=== PATIENT | female | born 1980 | race Two or more races ===

== ENCOUNTER 2017-05-24 10:15 | Inpatient (IN) | payer OTHER ==
[2017-05-24 10:48] LABS: BASOPHIL 0.6 % (0-2.0); EOSINOPHIL 0.7 % (0-4.5); MCH 29.3 pg (25.7-33.7); MCHC 32.9 g/dl (32.0-36.0); MEAN CELL VOLUME 89.2 fl (80-96); MEAN PLT VOLUME 9.6 fl (7.5-11.1); NEUTROPHILS 73.2 % (42.8-82.8); PLATELET COUNT 155 K/MM3 (134-434); RDW 13.1 % (11.6-15.6); WHITE BLOOD COUNT 6.9 K/mm3 (4.0-10.0)
[2017-05-24 10:54] VITALS: BMI 30.7
[2017-05-24] MEDS ORDERED: AMPICILLIN - 2 GM in SODIUM CHLORIDE 100 ML IVPB ONE (11:00)
[2017-05-24 11:01] LABS: INR 1.08 (0.82-1.09); PROTHROMBIN TIME (PATIENT) 11.9 SEC (9.98-11.88)
[2017-05-24] MEDS ORDERED: ELECTROLYTE-148 SOLN 1,000 ML IV SCH ×2 (11:15→13:30)
[2017-05-24 11:33] LABS: ALBUMIN 2.5 g/dl (3.4-5.0); ANION GAP 9 (8-16); CALCIUM 8.7 mg/dL (8.5-10.1); CO2 20 mmol/L (21-32); CREATININE 0.6 mg/dL (0.55-1.02); GLUCOSE,RANDOM 78 mg/dL (74-106); SGOT/AST 13 U/L (15-37); SGPT/ALT 15 U/L (12-78)
[2017-05-24 11:35] LABS: ALK PHOS 150 U/L (45-117); BILIRUBIN,TOTAL 0.2 mg/dL (0.2-1.0); TOT PROT 6.3 g/dl (6.4-8.2)
--- NOTE | 2017-05-24 12:03 | HP ---
Past Medical History - Primary Care Physician PCP:: Faustina Lau - Admission Chief Complaint: 36 years( AMA) , 36 weeks by dates, 36,6/7 weeks brought by ambulence. due to bleeding . 9.30 onset of pain, bleeding & leaking fluid since 10.00AM. 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 Weeks Gestation by Dates: 36.0 ...EDC by Dates: 06/21/17 ...EDC by Sono: 06/15/17 (36.6/7 weeks ) Additional OB History: G1 09/19/2000 39 weeks Twins Male & female in [facility]. G2 05/19/2004 39 weeks Twins , Male, female in [facility]. G3 03/26/2009 39 weeks female in [facility] Heme/Onc: Yes: Anemia Infectious Disease: No: AIDS, STD's, Tuberculosis Psych: No: Addictions, Anxiety, Bipolar, Depression - Past Surgical History Past Surgical History: Yes: None Hx Myomectomy: No Hx Transabdominal Cerclage: No - Smoking History Smoking history: Never smoked Have you smoked in the past 12 months: No - Alcohol/Substance Use Hx Alcohol Use: No History of Substance Use: reports: None - Social History History of Recent Travel: No Home Medications - Allergies Allergies/Adverse Reactions: Allergies Allergy/AdvReac Type Severity Reaction Status Date / Time No Known Allergies Allergy Verified 05/24/17 10:34 - Home Medications Home Medications: Ambulatory Orders NK [No Known Home Medication] 07/07/15 Physical Exam - Maternity Vital Signs: Vital Signs Temperature 98.7 F 05/24/17 10:42 Pulse Rate 71 05/24/17 10:42 Respiratory Rate 20 05/24/17 10:42 Blood Pressure 132/73 05/24/17 10:42 O2 Sat by Pulse Oximetry (%) Constitutional: Yes: Well Nourished, No Distress, Calm Eyes: Yes: WNL HENT: Yes: WNL, Normocephalic Neck: Yes: WNL, Trachea Midline Cardiovascular: Yes: WNL, Regular Rate and Rhythm Lungs: Clear to auscultation Breast(s): Yes: Other (not examined) - Abdominal Exam/OB Fundal Height: 36 Number of Fetuses: Single Presentation: Vertex Contractions: Yes Regularity: Regular (2-3 min) Intensity: Mod/Strong Monitor Mode: External Heart Rate (range): 160 Heart Rate Location: [facility] Category: I Decelerations: None - Vaginal Exam/OB Vaginal Bleediing: Yes, Moderate Speculum Exam: Yes Dilatation (cm): FT Effacement (%): unefface Amniotic Membrane Status: Ruptured Nitrazine Test: Positive Amniotic Fluid: Yes: Blood Stained (brown color stained fluid) Presentation: Vertex/Position (exam at 10.15 AM) Station: -4 - Physical Exam Extremities: Yes: WNL. No: Calf Tenderness Edema: LLE: Trace, RLE: Trace Integumentary: Yes: WNL Deep Tendon Reflex Grade: Normal +2 Psychiatric: Yes: WNL, Alert, Oriented - Labs Lab Results: CBC, BMP 05/24/17 10:35 05/24/17 10:35 Laboratory Tests 05/24/17 10:35 PT with INR 11.90 H INR 1.08 PTT (Actin FS) 27.0 Assessment/Plan 36 yrs ( AMA) , 36 weeks by dates & 36.6/7 weeks by sono diagnosed Abruptio placenta . fhr is assuring Plan continuous monitoring sono by the bed side If pt continues to bleed , possible delivery by Primary c/section
[2017-05-24 12:20] LABS: HIV 1 & 2 AB NEGATIVE; HIV 1 AGp24 NEGATIVE
[2017-05-24] MEDS ORDERED: ELECTROLYTE-148 SOLN 500 ML IV ONE (13:19)
[2017-05-24 14:35] LABS: ARTERIAL BLD GAS O2 SATURATION 4.3 % (90-98.9); ARTERIAL BLOOD GAS BASE EXCESS -4.5 meq/l (-2-2); ARTERIAL BLOOD GAS HCO3 24.7 meq/L (22-26); ARTERIAL BLOOD GAS PO2 7.4 mmHg (80-100)
[2017-05-24 14:36] LABS: ARTERIAL BLOOD GAS pH 7.21 (7.35-7.45); LPM/O2% 21%; PT. ON O2? NO; TYPE OF O2 ROOM AIR
[2017-05-24 14:37] LABS: ARTERIAL BLD GAS O2 SATURATION 29.7 % (90-98.9); ARTERIAL BLOOD GAS BASE EXCESS -3.5 meq/l (-2-2); ARTERIAL BLOOD GAS HCO3 23.2 meq/L (22-26); ARTERIAL BLOOD GAS pH 7.28 (7.35-7.45)
[2017-05-24 14:39] LABS: ARTERIAL BLOOD GAS PO2 19.9 mmHg (80-100); LPM/O2% 21%; PT. ON O2? NO; TYPE OF O2 ROOM AIR/CORDBLOODS
[2017-05-24] MEDS ORDERED: CITRIC ACID/SODIUM CITRATE 30 ML UNIT-DOSE CUP PO ONE (14:45)
[2017-05-24] MEDS ORDERED: AMPICILLIN - 1 GM in SODIUM CHLORIDE 100 ML IVPB SCH (15:00)
[2017-05-24] MEDS ORDERED: ONDANSETRON 4 MG/2 ML VIAL IVPUSH PRN (15:25)
--- NOTE | 2017-05-24 16:07 | PN ---
Progress Note (short form) - Note Progress Note: 1.00 PM patient had gush of vaginal bleeding moderate amount brown & red color accompanied by fluid . sonogram was being donee by the bed side , intrauterine blood clots were suspected. Pelvic exam : cx FT/unefface/vx _4 UC q2-3 min strong FHR 150, no decel, cat-1 Selected Entries 05/24/17 05/24/17 11:00 12:00 Temperature 98.5 F Pulse Rate 78 Blood Pressure 110/60 111/54 IMP: 36 weeks iup, Abruptio Placenta Plan Delivery by Primary LFTC?section
--- NOTE | 2017-05-24 16:23 | PN ---
Delivery - Delivery Section: Primary, Low Flap Transverse (36.6/7 weeks iup , abruptio placenta) Type of Anesthesia: Spinal Episiotomy/Laceration: None EBL (cc): 1,200 (han ouut put 100 ml melissa color ) Delivery, Single - Stages of Labor Date 1st Stage Initiatied: 05/24/17 Time 1st Stage Initiated: 09:30 Date of Delivery: 05/24/17 Time of Delivery: 13:34 Time Placenta Delivered: 13:35 (abruption, blood clots in fluid, brown color fluid ) Placenta: Yes: Manual Removal, Uterine Exploration - Condition of Infant Flight Mechanic/Senior Clinical Study Manager Present: Yes Name: Jules Wyman Infant Gender: Male Weight: 6 lb 4 oz Position: Right, OT Total Hours ROM (Hrs/Mins): AFluid blood clots, - 1 Minute Total Score: 9 5 Minutes Total Score: 9 - [place] Feeding Plan Initial Plan: Elected not to breastfeed exclusively throughout hospitalization Remarks - Remarks Remarks: 36 yrs 36 weeks by dates, 36.6/7 weeks by sono bleeding & leaking brown color fluid abruptio placenta suspected Gbs unknown , 2 gm iv Ampiciilin given 1 gm IVAncef prior to incision was given Intraop one unit pack cell transfusion started , 2 nd unit will be given in PACU . Large sinuses & large veins in front of lower segment of uterus , bleeding actively .hemostasis achieved
[2017-05-24] MEDS ORDERED: METHYLERGONOVINE MALEATE 0.2 MG/1 ML AMP IM PRN (16:24)
[2017-05-24] MEDS ORDERED: oxyCODONE HCL 5 MG TABLET PO PRN (16:24)
--- NOTE | 2017-05-24 16:37 | OP ---
Operative Note - Note: Operative Date: 05/24/17 Pre-Operative Diagnosis: 36.6/7 weeks , abruptio placenta Operation: Primary LFTC/Section Findings: 13.34 hr , Baby Boy, 9/9, ROT,Wt 6'4' , Both Tubes & ovaries normal blood clots ,in Amniotic fluid,& brown color fluid large veins in front of lower segment Surgeon: Faustina Lau Front Of House Manager: Antoine Espinal Anesthesiologist/GASTROENTEROLOGY TEACHER: Jose Mc Anesthesia: Spinal Specimens Removed: placenta. cord segment for blood gas. cord blood Estimated Blood Loss (mls): 1,200 Drains, Volume Out (mls): 100 (han melissa color urine ) Blood Volume Replaced (mls): 350 (1 pack cell unit in or & 1 in pacu ) Fluid Volume Replaced (mls): 1,500 (iv ancef prior to incision ) Operative Report Dictated: Yes
[2017-05-24] MEDS: D5W-LR W/ 20 UNITS OXYTOCIN 1,000 ML IV SCH ×2 (17:00→23:57)
[2017-05-24] MEDS: IBUPROFEN 800 MG/8 ML IJ IVPB PRN ×2 (17:45→23:54)
[2017-05-24] MEDS ORDERED: CEFAZOLIN 1 GM/D5W 50 ML IVPB SCH (18:00)
[2017-05-24] MEDS: CEFAZOLIN 1 GM/D5W 50 ML IVPB SCH (20:26)
[2017-05-24 20:51] LABS: BASOPHIL 0.3 % (0-2.0); EOSINOPHIL 0.2 % (0-4.5); MCH 30.4 pg (25.7-33.7); MCHC 34.1 g/dl (32.0-36.0); MEAN CELL VOLUME 89.2 fl (80-96); MEAN PLT VOLUME 9.9 fl (7.5-11.1); NEUTROPHILS 77.7 % (42.8-82.8); PLATELET COUNT 127 K/MM3 (134-434); RDW 13.1 % (11.6-15.6); WHITE BLOOD COUNT 8.5 K/mm3 (4.0-10.0)
[2017-05-25] MEDS ORDERED: DEXTROSE 5%-WATER - 50 ML IVPB ONE ×2 (04:13→11:50)
[2017-05-25] MEDS ORDERED: ceFAZolin SODIUM 1 GM VIAL ONE ×2 (04:13→11:50)
[2017-05-25] MEDS: CEFAZOLIN 1 GM/D5W 50 ML IVPB SCH (04:16)
[2017-05-25] MEDS: CEFAZOLIN 1 GM in DEXTROSE 5%-WATER - 50 ML IVPB SCH ×2 (04:20→11:54)
--- NOTE | 2017-05-25 07:18 | OP ---
DATE OF OPERATION: 05/24/2017 PREOPERATIVE DIAGNOSIS: 36-6/7 weeks gestation. Abruptio placentae. PROCEDURE PERFORMED: Primary xwb-prvy-ejtpqdvahs section. SURGEON: Faustina Lau MD BLUEPRINTING AND PHOTOCOPY SUPERVISOR: CHAZ New ANESTHESIOLOGIST: Jose Mc M.D. ANESTHESIA: Spinal. INDICATIONS: This is a 36-year-old 4, para 3-0-0-5, with a history of 3 normal spontaneous vaginal deliveries and 2 sets of twins. The patient was dominic every 2 minutes. She presented with moderate bleeding and leaking, in Labor and Delivery also. Contractions were every 2 minutes. Abruptio placentae was suspected. heart rate was category 1. Cervix was fingertip, uneffaced and -4 station. Ultrasound was done at bedside which raised suspicion for blood clots in the amniotic fluid. DESCRIPTION OF PROCEDURE: The patient was taken to the operating room table. A Guaman catheter was placed. The abdomen was shaved and draped. She was given spinal anesthesia. She was placed in the supine position. The abdomen was painted and draped in the usual manner. A Pfannenstiel incision was made through the skin and subcutaneous tissue. The anterior rectus sheath was incised transversely. Bleeding points were clamped and cauterized. The rectus muscle was from the rectus sheath. The parietal peritoneum was opened vertically; lower flap by the bladder peritoneum incised transversely. There were large blood vessels covering the lower segment, and the uterine segment was incised transversely. The amniotic fluid was brown in color, blood stained, and large blood clots were coming out. The baby was delivered from ROT position at 0134 hours, baby boy. Apgars were 9 and 9. Cord was clamped and cut. Cord blood was collected. Endbander, Dr. Jules Wyman, was present. The baby's weight was 6 pounds 4 ounces. The placenta was removed completely with the membranes. The uterine cavity was cleaned. The uterine was closed in 2 layers. The 1st layer was a continuous locking with Biosyn 0 suture. The 2nd layer also was continuous Biosyn; vertical mattress sutures were taken. The bladder peritoneum was closed with Biosyn 0 suture. Before closure of the bladder peritoneum closure, hemostatic sutures were required in the left angle of the incision and also wherever there were large blood vessels, more hemostatic sutures were required there. Both tubes and ovaries were normal. Irrigation was done. Sponge, instrument and needle counts were correct. Irrigation was done. Closure of the abdomen was done. The parietal peritoneum was closed with Vicryl 0 suture. The muscles were approximated together with Vicryl 0 interrupted sutures. The anterior rectus sheath was closed with Vicryl 0 continuous sutures. Hemostasis was checked in the subcutaneous tissue. The skin was approximated with adeline. A pressure dressing was given. Blood clots were removed from the vagina. Estimated blood loss was 1200 mL. Her intraoperative urine output was 100 mL. She received 1500 mL of IV fluids. She was given 1 unit of packed cells intraoperatively, and a second unit of packed cells was given in the recovery room. The patient tolerated the procedure well. She was sent to the recovery room in stable condition. She received 1 g of IV Ancef prior to the incision. Malaika [id number]
[2017-05-25 07:57] LABS: BASOPHIL 0.2 % (0-2.0); EOSINOPHIL 0.5 % (0-4.5); MCH 29.6 pg (25.7-33.7); MCHC 33.5 g/dl (32.0-36.0); MEAN CELL VOLUME 88.2 fl (80-96); MEAN PLT VOLUME 9.6 fl (7.5-11.1); NEUTROPHILS 82.7 % (42.8-82.8); PLATELET COUNT 125 K/MM3 (134-434); RDW 13.5 % (11.6-15.6); WHITE BLOOD COUNT 9.8 K/mm3 (4.0-10.0)
--- NOTE | 2017-05-25 08:11 | PN ---
Progress Note (short form) - Note Progress Note: Anesthesia/ Pain Pt seen and examined S:alert and oriented comfortable O: Vital Signs Temperature 99.2 F 05/25/17 06:20 Pulse Rate 68 05/25/17 06:20 Respiratory Rate 18 05/25/17 06:20 Blood Pressure 101/60 05/25/17 06:20 O2 Sat by Pulse Oximetry (%) 99 05/24/17 17:15 CBC, BMP 05/25/17 07:46 05/24/17 10:35 A/P: s/p c section doing well post op continue current care Kermit Aguirre MD
[2017-05-25] MEDS: PRENATAL VITAMINS W/ FOLIC ACID TABLET (FP) PO SCH (09:30)
[2017-05-25] MEDS: IBUPROFEN 800 MG/8 ML IJ IVPB PRN (09:37)
[2017-05-25] MEDS ORDERED: FLU VACC QS2017-18 36MOS UP/PF 60 MCG/0.5 ML SYRINGE IM ONE (14:00)
[2017-05-25] MEDS ORDERED: DIPHTH,PERTUSS(ACELL),TET 0.5 ML DISP.SYRIN IM ONE (14:00)
[2017-05-25] MEDS ORDERED: BISACODYL 10 MG SUPP.RECT RC PRN (16:24)
--- NOTE | 2017-05-25 16:24 | PN ---
Progress Note (short form) - Note Progress Note: pod 1 doing well, no c/o ,no excess vaginal bleeding CBC, BMP 05/25/17 07:46 05/24/17 10:35 Last Vital Signs Temp Pulse Resp BP Pulse Ox 97.9 F 71 20 108/64 99 05/25/17 14:03 05/25/17 14:03 05/25/17 14:03 05/25/17 14:03 05/24/17 17:15 abdomen soft, no distension, no cva incision dry, clean no calf tenderness plan ambulate, advance diet
[2017-05-25] MEDS: IBUPROFEN 600 MG TABLET (FP) PO PRN ×2 (16:48→22:36)
[2017-05-25] MEDS: SIMETHICONE 80 MG TAB.CHEW (FP) PO PRN ×2 (16:48→22:33)
[2017-05-25] MEDS: ACETAMINOPHEN 325 MG TABLET (FP) PO PRN ×2 (16:49→22:37)
[2017-05-25] MEDS: SENNOSIDES/DOCUSATE COMBO (SENNA PLUS) TABLET (UD) PO PRN (22:00)
[2017-05-25] MEDS: FERROUS SO4 325 MG TABLET (FP) PO SCH (22:33)
[2017-05-26] MEDS: FERROUS SO4 325 MG TABLET (FP) PO SCH ×2 (10:00→22:25)
--- NOTE | 2017-05-26 14:02 | PN ---
Post Progress Note Post Day: 2 Type of Delivery: Primary C/S Vital Signs: Vital Signs Temperature 99.0 F 05/26/17 10:00 Pulse Rate 83 05/26/17 10:00 Respiratory Rate 18 05/26/17 10:00 Blood Pressure 110/67 05/26/17 10:00 O2 Sat by Pulse Oximetry (%) 99 05/24/17 17:15 Breast Exam: Yes: Soft Uterus: Yes: Fundus Firm Incision: Yes: Dressing dry and intact Abdomen/GI: Yes: Abdomen soft Lochia: Yes: Rubra Lochia, amount: Small Extremities: Yes: Calves non-tender Perineum: Yes: Intact - Labs Labs: CBC WBC 9.8 K/mm3 (4.0-10.0) 05/25/17 07:46 RBC 3.77 M/mm3 (3.60-5.2) 05/25/17 07:46 Hgb 11.1 GM/dL (10.7-15.3) 05/25/17 07:46 Hct 33.2 % (32.4-45.2) 05/25/17 07:46 MCV 88.2 fl (80-96) 05/25/17 07:46 MCH 29.6 pg (25.7-33.7) 05/25/17 07:46 MCHC 33.5 g/dl (32.0-36.0) 05/25/17 07:46 RDW 13.5 % (11.6-15.6) 05/25/17 07:46 Plt Count 125 K/MM3 (134-434) L 05/25/17 07:46 MPV 9.6 fl (7.5-11.1) 05/25/17 07:46 Neutrophils % 82.7 % (42.8-82.8) 05/25/17 07:46 Lymphocytes % 8.0 % (8-40) D 05/25/17 07:46 Monocytes % 8.6 % (3.8-10.2) 05/25/17 07:46 Eosinophils % 0.5 % (0-4.5) D 05/25/17 07:46 Basophils % 0.2 % (0-2.0) 05/25/17 07:46 Assessment/Plan pod 2 doing well stable oob
[2017-05-26] MEDS: ACETAMINOPHEN 325 MG TABLET (FP) PO PRN (15:19)
[2017-05-26] MEDS: oxyCODONE HCL 5 MG TABLET PO PRN ×2 (15:20→20:42)
[2017-05-26] MEDS: SIMETHICONE 80 MG TAB.CHEW (FP) PO PRN ×2 (15:20→20:42)
[2017-05-26] MEDS: PRENATAL VITAMINS W/ FOLIC ACID TABLET (FP) PO SCH (17:33)
[2017-05-26] MEDS: SENNOSIDES/DOCUSATE COMBO (SENNA PLUS) TABLET (UD) PO PRN (20:42)
[2017-05-26] MEDS: IBUPROFEN 600 MG TABLET (FP) PO PRN (20:43)
--- NOTE | 2017-05-26 22:44 | DS ---
Physical Exam-SUPERVISOR [employer]ICATIONS [employer]ODUCTION Vital Signs: Vital Signs Temperature 99.0 F 05/26/17 20:42 Pulse Rate 101 H 05/26/17 20:42 Respiratory Rate 18 05/26/17 20:42 Blood Pressure 122/78 05/26/17 20:42 O2 Sat by Pulse Oximetry (%) 99 05/24/17 17:15 Constitutional: Yes: Well Nourished, Other (no c/o dizziness) Eyes: Yes: WNL HENT: Yes: WNL Neck: Yes: WNL Cardiovascular: Yes: WNL Respiratory: Yes: WNL Gastrointestinal: Yes: WNL, Normal Bowel Sounds. No: Distention Renal/: Yes: WNL ....Post : Yes: Uterus firm, Uterus non-tender, Moderate lochia rubra Breast(s): Yes: WNL Musculoskeletal: Yes: WNL Extremities: Yes: WNL, Calf Tenderness Edema: Yes Integumentary: Yes: WNL Wound/Incision: Yes: Clean/Dry Neurological: Yes: WNL, Alert, Oriented ...Motor Strength: WNL Psychiatric: Yes: WNL Labs: CBC, BMP 05/25/17 07:46 05/24/17 10:35 Delivery - Delivery Section: Primary, Low Flap Transverse (36.6/7 weeks iup , abruptio placenta) Type of Anesthesia: Spinal Episiotomy/Laceration: None EBL (cc): 1,200 (han ouut put 100 ml melissa color ) Delivery, Single - Stages of Labor Date 1st Stage Initiatied: 05/24/17 Time 1st Stage Initiated: 09:30 Date of Delivery: 05/24/17 Time of Delivery: 13:34 Time Placenta Delivered: 13:35 (abruption, blood clots in fluid, brown color fluid ) Placenta: Yes: Manual Removal, Uterine Exploration - Condition of Infant Lumber Kiln Operator/Stopper Setter Present: Yes Name: Jules Wyman Gender: Male Weight: 6 lb 4 oz Position: Right, OT Total Hours ROM (Hrs/Mins): 5/34 AFluid blood clots, - 1 Minute Total Score: 9 5 Minutes Total Score: 9 - [place] Feeding Plan Initial Plan: Elected not to breastfeed exclusively throughout hospitalization Remarks - Remarks Remarks: 36 yrs 36 weeks by dates, 36.6/7 weeks by sono bleeding & leaking brown color fluid abruptio placenta suspected Gbs unknown , 2 gm iv Ampiciilin given 1 gm IVAncef prior to incision was given Intraop one unit pack cell transfusion started , 2 nd unit will be given in PACU . Large sinuses & large veins in front of lower segment of uterus , bleeding actively .hemostasis achieved .. post op course uneventful, post 2 pack cell transfusion .CBC stable Anemia counselled discharge rtc 1 week for wound check Discharge Summary Current Active Problems 36 to 37 weeks gestation of (Acute) Anemia due to blood loss, acute (Acute) Delivery by emergency section (Acute) Placenta abruptio, antepartum (Acute) Placenta abruption, delivered, current hospitalization (Acute) Condition: Stable - Instructions Diet, Activity, Other Instructions: Post Instructions DIET: Continue good diet high in protein, calcium, and iron rich foods. Drink at least eight (8) glasses of water daily in addition to other fluids. ct Regular diet MEDICATIONS: Continue vitamins and iron as previously directed. Motrin and Tylenol may be taken for minor discomfort. ACTIVITY: Mild to moderate exercise may be started in two (2) weeks. Take frequent rest periods. Resume normal activity after six (6) week check up. WOUND CARE OF OPERATIVE SITE: Continue use of perineal bottle until vaginal discharge stops. Keep area clean. Shower daily. Keep abdominal wound dry. Report any drainage or redness to physician. Tub baths, tampons and douches are not permitted for [address] Breast feeding & or Bottle feeding BREAST CARE: (For those that are not breast feeding): If engorgement occurs: Wear tight fitting bra. Take Tylenol or Motrin for pain. Apply cold packs (ice in bags to each breast ) FAMILY PLANNING: There are many control alternatives to pursue and they should be discussed at your first office visit. You may resume sexual activity after your six (6) week check up. (Remember, breast feeding is not a contraceptive) NEXT PHYSICIAN APPOINTMENT: Be certain to call for a one (1) week appointment, unless otherwise directed. RTC 1 weeks for adeline removal Call Clinic or got to Emergency Dept if you have any of the following: Heavy vaginal bleeding Painful urination Leg pain Unusual odor noted to vaginal bleeding High fever Red streaking noted on breast Referrals: Rosas Shaw MD [Staff Physician] - Disposition: HOME - Home Medications Comprehensive Discharge Medication List: Ambulatory Orders Acetaminophen [Tylenol .Regular Strength -] 500 mg PO Q4H PRN #30 tablet Ferrous Sulfate [Feosol] 325 mg PO BID #60 tab 05/26/17 Ibuprofen [Motrin -] 600 mg PO Q4H PRN #30 tablet 05/26/17 Vitamins (Sjr) - 1 tab PO DAILY #30 tablet 05/26/17
[2017-05-27 07:06] LABS: BASOPHIL 0.5 % (0-2.0); EOSINOPHIL 0.9 % (0-4.5); MCH 29.9 pg (25.7-33.7); MCHC 33.5 g/dl (32.0-36.0); MEAN CELL VOLUME 89.4 fl (80-96); MEAN PLT VOLUME 8.7 fl (7.5-11.1); NEUTROPHILS 86.3 % (42.8-82.8); PLATELET COUNT 155 K/MM3 (134-434); RDW 13.5 % (11.6-15.6)
[2017-05-27] MEDS: IBUPROFEN 600 MG TABLET (FP) PO PRN (09:08)
[2017-05-27] MEDS: SIMETHICONE 80 MG TAB.CHEW (FP) PO PRN (09:08)
[2017-05-27] MEDS: oxyCODONE HCL 5 MG TABLET PO PRN (09:09)
[2017-05-27] MEDS: PRENATAL VITAMINS W/ FOLIC ACID TABLET (FP) PO SCH (09:10)
[2017-05-27] MEDS: FERROUS SO4 325 MG TABLET (FP) PO SCH ×2 (09:10→21:13)
[2017-05-27] MEDS: SENNOSIDES/DOCUSATE COMBO (SENNA PLUS) TABLET (UD) PO PRN (21:13)
--- NOTE | 2017-05-28 06:58 | PN ---
Post Progress Note Post Day: 4 Type of Delivery: Primary C/S Vital Signs: Vital Signs Temperature 99.6 F 05/28/17 01:58 Pulse Rate 93 H 05/27/17 22:00 Respiratory Rate 18 05/27/17 22:00 Blood Pressure 104/67 05/27/17 22:00 O2 Sat by Pulse Oximetry (%) 99 05/24/17 17:15 Breast Exam: Yes: Soft Uterus: Yes: Fundus Firm Incision: Yes: Jani intact Abdomen/GI: Yes: Abdomen soft Lochia: Yes: Rubra Lochia, amount: Small Extremities: Yes: Calves non-tender Perineum: Yes: Intact Activity: Ambulating - Labs Labs: CBC WBC 12.0 K/mm3 (4.0-10.0) H 05/27/17 06:25 RBC 3.55 M/mm3 (3.60-5.2) L 05/27/17 06:25 Hgb 10.6 GM/dL (10.7-15.3) L 05/27/17 06:25 Hct 31.7 % (32.4-45.2) L 05/27/17 06:25 MCV 89.4 fl (80-96) 05/27/17 06:25 MCH 29.9 pg (25.7-33.7) 05/27/17 06:25 MCHC 33.5 g/dl (32.0-36.0) 05/27/17 06:25 RDW 13.5 % (11.6-15.6) 05/27/17 06:25 Plt Count 155 K/MM3 (134-434) D 05/27/17 06:25 MPV 8.7 fl (7.5-11.1) 05/27/17 06:25 Neutrophils % 86.3 % (42.8-82.8) H 05/27/17 06:25 Lymphocytes % 5.5 % (8-40) L D 05/27/17 06:25 Monocytes % 6.8 % (3.8-10.2) 05/27/17 06:25 Eosinophils % 0.9 % (0-4.5) 05/27/17 06:25 Basophils % 0.5 % (0-2.0) 05/27/17 06:25 Assessment/Plan oob reg diet pain control
[2017-05-28] MEDS: PRENATAL VITAMINS W/ FOLIC ACID TABLET (FP) PO SCH (09:36)
[2017-05-28] MEDS: FERROUS SO4 325 MG TABLET (FP) PO SCH (09:36)
[2017-05-28 10:00] VITALS: BP 124/74; PULSE 75; TEMP 98.2
--- NOTE | 2017-05-28 11:06 | PATH ---
Surgical Pathology Report Patient Name: ROCCO HARDIN [facility]. Rec. #: [id number] /Age/Gender: 1980 (Age: 36) / F Account: [id number] Location: [facility] OBS/FISCAL ACCOUNTANT Taken: 05/24/2017 Received: 05/25/2017 Reported: 05/28/2017 Physicians: Faustina Lau M.D. Specimen(s) Received PLACENTA Clinical History 36-6/7 weeks gestation. Previous twin delivery in 2000 and 2003. 2008. Abruption Final Diagnosis PLACENTA, DELIVERY: THIRD TRIMESTER PLACENTA WITH SUBCHORIONIC FIBRIN DEPOSITION, AMNION HYPERPLASIA OF PLACENTAL MEMBRANES, AND PARAMARGINALLY INSERTED THREE-VESSEL UMBILICAL CORD. Electronically Signed Nazario Pratt M.D. Gross Description The specimen is received fresh labeled placenta and is a 497 gram, 19 x 16 x 2 cm. placenta with attached membranes and umbilical cord. The attached membranes are dusky and translucent and insert marginally. The umbilical cord measures 32 cm. in length and averages 1.6 cm. in diameter. The cord inserts paramarginally, 1 cm. to the nearest margin. No true knots or strictures are identified. Cut surface of the umbilical cord reveals 3 vessels. The surface is collier-blue with minimal fibrin deposition and appropriate caliber vessels. The maternal surface is lobulated and appears complete with no adherent blood clots or areas of thinning. Sectioning reveals red-brown, spongy parenchyma. No lesions are identified. Health And Human Performance Professor sections are submitted in three cassettes as follows: 1- membrane rolls and umbilical cord; 2-3- full thickness sections of placenta. [facility]/05/25/2017 [facility]/05/25/2017
== END 2017-05-28 18:15 | disposition home or self-care (01) | DRG 540 ==
LOC: JLDR 10:15 → J3W 18:00
PROVIDERS: ADMIT Obstetrics & Gynecology; ATTEND Obstetrics & Gynecology
PROC: 10D00Z1 Extraction of Products of Conception, Low, Open Approach (ICD-10-PCS; principal; 2017-05-24)
PROC: 30233N1 Transfusion of Nonautologous Red Blood Cells into Peripheral Vein, Percutaneous Approach (ICD-10-PCS; 2017-05-24)
DX: O45.8X3 Other premature separation of placenta, third trimester (principal); Z3A.36 36 weeks gestation of pregnancy; Z37.0 Single live birth; O90.81 Anemia of the puerperium; D62 Acute posthemorrhagic anemia
CPT/HCPCS: 36415; 36430; 36600; 76801-TC; 80053; 82803; 85025; 85362; 85384; 85610; 85730; 86593; 86850; 86900; 86901; 86922; 87340; 87389; 88307-TC; 90686; 90715; G0008; P9038; P9058